=== PATIENT | female | born 1960 | race Caucasian/White ===

== ENCOUNTER 2023-11-06 06:31 | Emergency (ER) | payer MEDICAID ==
[~2023-11-06] VITALS: Ht 149.9 cm; Wt 63.5 kg
[2023-11-06 06:50] VITALS: BP_SYST 152; PULSE 70; RESP 20; TEMP 98.1; O2SAT 97
[2023-11-06 07:34] LABS: COLOR,URINE BROWN (YELLOW)
[2023-11-06 07:35] LABS: CLARITY/URINE CLOUDY (CLEAR); GLUCOSE,URINE NEGATIVE (NEGATIVE); KETONES,URINE NEGATIVE (NEGATIVE); PROTEIN URINE 3+ (NEGATIVE)
[2023-11-06 07:37] LABS: BILIRUBIN,URINE 1+ (NEGATIVE); BLOOD, URINE 3+ (NEGATIVE); LEUKOCYTE ESTERASE ,URINE 2+ (NEGATIVE); NITRITE, URINE POSITIVE (NEGATIVE)
[2023-11-06 07:44] LABS: BACTERIA,URINE MODERATE /HPF (None Seen); RBC,URINE >100 /HPF (0-3); WBC,URINE 80-100 /HPF (0-3)
[2023-11-06 07:45] LABS: MUCUS,URINE 1+ /LPF (None Seen)
[2023-11-06] MEDS ORDERED: CEPH250C PO (07:52)
[2023-11-06 08:08] VITALS: BP_SYST 126; PULSE 60; RESP 21; TEMP 98.5; O2SAT 97
== END 2023-11-06 08:10 | disposition home or self-care (01) ==
LOC: SED 06:31
DX: N30.91 Cystitis, unspecified with hematuria (principal)
CPT/HCPCS: 81000; 81001; 81015; 87086; 87186; 99283